=== PATIENT | female | born 1995 | race American Indian/Alaskan Native ===

== ENCOUNTER 2017-11-19 07:34 | Emergency (ER) | payer MEDICAID ==
[2017-11-19 08:02] VITALS: RESP 18; O2SAT 98
[2017-11-19] MEDS ORDERED: Morphine 4 mg/ml ISec IVP STA (08:11)
[2017-11-19] MEDS ORDERED: Sodium Chloride 0.9% 1,000 ML IV STA (08:11)
--- NOTE | 2017-11-19 08:16 | ED PDOC ---
Arrival/HPI - General Chief Complaint: Anxiety Time Seen by Provider: 11/19/17 07:44 Historian: Patient - History of Present Illness Narrative History of Present Illness (Text): 11/19/17 08:11 22 year old female, visiting from [place], [place], with past medical history of anxiety, presents to the Emergency department accompanied by boyfriend complaining of nausea and vomiting secondary to worsening anxiety since 3 days. 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 Patient informs similar symptoms in the past for which she was hospitalized and "nothing was wrong" As per patient, she had a recent endoscopy performed last month with no acute findings. Patient denies any fever, chills, diarrhea, hematemesis, hematuria, dysuria, urinary output changes, chest pain, shortness of breath or any other complaints. Patient presents to the Emergency department for medical evaluation. 11/19/17 17:57 Time/Duration: < week (3 days) Symptom Onset: Gradual Symptom Course: Unchanged Activities at Onset: Light Past Medical History - Provider Review Nursing Documentation Reviewed: Yes - Infectious Disease Hx of Infectious Diseases: None - Pulmonary Hx Asthma: Yes - Psychiatric Hx Anxiety: Yes Hx Substance Use: No Family/Social History - Physician Review Nursing Documentation Reviewed: Yes Family/Social History: No Known Family HX Smoking Status: Never Smoked Hx Alcohol Use: No Hx Substance Use: No Allergies/Home Meds Allergies/Adverse Reactions: Allergies No Known Allergies Allergy (Verified 11/19/17 08:32) Review of Systems - Physician Review All systems were reviewed & negative as marked: Yes - Review of Systems Constitutional: absent: Fevers Respiratory: absent: SOB, Cough Cardiovascular: absent: Chest Pain Gastrointestinal: Abdominal Pain, Nausea, Vomiting. absent: Diarrhea, Hematemesis Genitourinary Female: absent: Dysuria, Hematuria, Urine Output Changes Physical Exam Vital Signs Reviewed: Yes Vital Signs Temp Pulse Resp BP Pulse Ox 11/19/17 11:27 98.5 F 72 18 125/79 98 11/19/17 11:00 98.5 F 72 18 125/79 98 11/19/17 09:35 99.5 F 89 18 132/89 98 11/19/17 07:54 97.9 F 98 H 18 118/90 98 Temperature: Afebrile Blood Pressure: Normal Pulse: Tachycardic Respiratory Rate: Normal Appearance: Positive for: Other (Anxious) Pain Distress: None Mental Status: Positive for: Alert and Oriented X 3 - Systems Exam Head: Present: Atraumatic, Normocephalic Pupils: Present: PERRL Extroacular Muscles: Present: EOMI Conjunctiva: Present: Normal Mouth: Present: Moist Mucous Membranes Neck: Present: Normal Range of Motion Respiratory/Chest: Present: Clear to Auscultation, Good Air Exchange. No: Respiratory Distress, Accessory Muscle Use Cardiovascular: Present: Regular Rate and Rhythm, Normal S1, S2. No: Murmurs Abdomen: Present: Tenderness (epigastric tenderness ). No: Distention, Peritoneal Signs Back: Present: Normal Inspection Upper Extremity: Present: Normal Inspection. No: Cyanosis, Edema Lower Extremity: Present: Normal Inspection. No: Edema Neurological: Present: GCS=15, CN II-XII Intact, Speech Normal Skin: Present: Warm, Dry, Normal Color. No: Rashes Psychiatric: Present: Alert, Oriented x 3, Anxious Medical Decision Making ED Course and Treatment: 11/19/17 08:11 Impression: 22 year old female presents to the Emergency department complaining of anxiety and abdominal pain associated with nausea and vomiting. Differential Diagnosis included but are not limited to: anxiety vs gastritis/ pancreatitis pud Plan: -- EKG -- CT of Abdomen/Pelvis -- CXR -- Labs -- Ativan -- IV Fluids -- Urinalysis -- Reassess and disposition Progress Notes: 11/19/17 09:00 EKG: Ordered, reviewed, and independently interpreted the EKG. Rate : 90 BPM Rhythm : NSR Interpretation : Patient shaking during exam secondary to emotion. 11/19/17 11:05 CT of Abdomen/Pelvis reviewed by radiologist, shows: Mild hepatomegaly with mild fatty infiltration. Urinary bladder exhibits thick-walled appearance in part due to incomplete distention however a cystitis should be excluded with followup urinalysis. 11/19/17 17:58 labs imagign neg. pt observed sleeping inad. abd soft. h/h stable. pt observed drinkning water in nad. advise outpt fu and return precautions - Lab Interpretations Lab Results: 11/19/17 08:10 11/19/17 08:10 Lab Results 11/19/17 08:20: Urine Opiates Screen Negative, Urine Methadone Screen Negative, Ur Barbiturates Screen Negative, Ur Phencyclidine Scrn Negative, Ur Amphetamines Screen Negative, U Benzodiazepines Scrn Negative, U Oth Cocaine Metabols Negative, U Cannabinoids Screen Positive H 11/19/17 08:20: Urine Color Yellow, Urine Appearance Cloudy, Urine pH 8.0, Ur Specific [place] 1.020, Urine Protein 100 H, Urine Glucose (UA) Negative, Urine Ketones >=80, Urine Blood Trace-intact H, Urine Nitrate Negative, Urine Bilirubin Negative, Urine Urobilinogen 0.2, Ur Leukocyte Esterase Trace H, Urine RBC 1 - 3, Urine WBC 2 - 5, Ur Epithelial Cells Tntc, Amorphous Sediment Moderate, Urine Bacteria Trace, Urine HCG, Qual Negative 11/19/17 08:10: Alcohol, Quantitative < 10 11/19/17 08:10: Salicylates < 1 L, Acetaminophen < 10.0 L 11/19/17 08:10: Sodium 139, Potassium 3.6, Chloride 105, Carbon Dioxide 17 L, Anion Gap 21 H, BUN 11, Creatinine 0.6 L, Est GFR ( Amer) > 60, Est GFR ( Non-Af Amer) > 60, Random Glucose 125 H, Calcium 10.2, Magnesium 1.7, Total Bilirubin 0.8, AST 24, ALT 16, Alkaline Phosphatase 59, Total Protein 8.9 H, Albumin 5.0 H, Globulin 3.9, Albumin/Globulin Ratio 1.3, Lipase 30 11/19/17 08:10: PT 12.2, INR 1.06, APTT 22.0 L 11/19/17 08:10: WBC 7.2, RBC 5.20, Hgb 14.1, Hct 39.5, MCV 76.0 L, MCH 27.1, MCHC 35.7, RDW 13.2, Plt Count 318, MPV 10.4, Gran % 62.8, Lymph % (Auto) 24.3, [place] % (Auto) 12.7 H, Eos % (Auto) 0.1 L, Baso % (Auto) 0.1, Gran # 4.53, Lymph # (Auto) 1.8, [place] # (Auto) 0.9 H, Eos # (Auto) 0.0, Baso # (Auto) 0.01 - RAD Interpretation Radiology Orders: 11/19/17 09:05 ABD & PELVIS IV CONTRAST ONLY [CT] Stat CHEST TWO VIEWS (PA/LAT) [RAD] Stat - EKG Interpretation Interpreted by ED Physician: Yes Type: 12 lead EKG - Medication Orders Current Medication Orders: Discontinued Medications Al Hydrox/Mg Hydrox/Simethicone (Maalox Plus 30 Ml) 30 ml PO STAT STA Stop: 11/19/17 10:25 Last Admin: 11/19/17 10:32 Dose: 30 ml Belladonna/Phenobarbital ( Elixir) 10 ml PO STAT STA Stop: 11/19/17 10:25 Last Admin: 11/19/17 10:31 Dose: 10 ml Sodium Chloride (Sodium Chloride 0.9%) 1,000 mls @ 1,000 mls/hr IV .Q1H STA Stop: 11/19/17 09:10 Last Admin: 11/19/17 08:38 Dose: 1,000 mls/hr eMAR Start Stop Document 11/19/17 08:38 LM (Rec: 11/19/17 08:38 [id number] Intravenous Solution Start Date 11/19/17 Start Time 08:38 End Date 11/19/17 End time 09:39 Total Infusion Time 61 Lidocaine HCl (Lidocaine 2% Viscous) 10 ml MM STAT STA Stop: 11/19/17 10:25 Last Admin: 11/19/17 10:32 Dose: 10 ml Lorazepam (Ativan) 0.5 mg IVP ONCE ONE PRN Reason: Protocol Stop: 11/19/17 08:12 Last Admin: 11/19/17 08:37 Dose: 0.5 mg IVP Administration Document 11/19/17 08:37 [facility] [place] (Rec: 11/19/17 08:38 [id number] Charges for Administration # of IVP Administrations 1 Ondansetron HCl (Zofran Inj) 4 mg IVP STAT STA Stop: 11/19/17 08:41 Last Admin: 11/19/17 09:21 Dose: 4 mg IVP Administration Document 11/19/17 09:21 EW (Rec: 11/19/17 09:21 EWO [id number]) Charges for Administration # of IVP Administrations 1 Ondansetron HCl (Zofran Inj) 4 mg IVP STAT STA Stop: 11/19/17 10:32 Last Admin: 11/19/17 10:38 Dose: 4 mg IVP Administration Document 11/19/17 10:38 EWO (Rec: 11/19/17 10:38 EWO [id number]) Charges for Administration # of IVP Administrations 2 Pantoprazole Sodium (Protonix Inj) 40 mg IVP STAT STA Stop: 11/19/17 08:12 Last Admin: 11/19/17 08:37 Dose: 40 mg IVP Administration Document 11/19/17 08:37 [facility] [place] (Rec: 11/19/17 08:37 [id number] Charges for Administration # of IVP Administrations 1 - Scribe Statement The provider has reviewed the documentation as recorded by the Scribe Carline Natarajan. All medical record entries made by the Scribe were at my direction and personally dictated by me. I have reviewed the chart and agree that the record accurately reflects my personal performance of the history, physical exam, medical decision making, and the department course for this patient. I have also personally directed, reviewed, and agree with the discharge instructions and disposition. Disposition/Present on Arrival - Present on Arrival Any Indicators Present on Arrival: No History of DVT/PE: No History of Uncontrolled Diabetes: No Urinary Catheter: No History of Decub. Ulcer: No History Surgical Site Infection Following: None - Disposition Have Diagnosis and Disposition been Completed?: Yes Diagnosis: Vomiting Disposition: HOME/ ROUTINE Disposition Time: 05:00 Condition: STABLE Discharge Instructions (ExitCare): Anxiety, Adult (DC), Nausea and Vomiting, Adult (DC) Additional Instructions: please follow up with your doctor. return to er with worsening symptoms or concerns. Prescriptions: Ondansetron ODT [Zofran ODT] 4 mg PO Q8 PRN #20 odt PRN Reason: Nausea/Vomiting Referrals: [facility] [Outside] - Follow up with primary [facility] [Outside] - Follow up with primary Forms: [employer] (French)
[2017-11-19 08:36] LABS: ALB/GLOB RATIO 1.3 (1.1-1.8); ALT/SGPT 16 U/L (7-56); AST/SGOT 24 U/L (14-36); BLOOD UREA NITROGEN 11 mg/dL (7-21); CALCIUM 10.2 mg/dL (8.4-10.5); GFR AFRICAN-AMERICAN > 60; GFR NON-AFRICAN AMERICAN > 60; LIPASE 30 U/L (23-300)
[2017-11-19 08:37] LABS: ACETAMINOPHEN < 10.0 ug/ml (10.0-20.0); SALICYLATE < 1 mg/dL (2.0-20.0)
[2017-11-19 08:47] LABS: BASO # 0.01 K/mm3 (0.0-2.0); BASO % 0.1 % (0.0-3.0); EOS % 0.1 % (1.5-5.0); GRAN # 4.53 (1.4-6.5); GRAN % 62.8 % (50.0-68.0); HEMOGLOBIN 14.1 g/dL (12.0-16.0); LYMPH # 1.8 (1.2-3.4); LYMPH % 24.3 % (22.0-35.0); MEAN CORPUSCULAR HEMOGLOBIN 27.1 pg (25.0-35.0); MEAN CORPUSCULAR HGB CONC 35.7 g/dl (31.0-37.0); MEAN PLATELET VOLUME 10.4 fl (7.0-11.0); MONO # 0.9 (0.1-0.6); MONO % 12.7 % (1.0-6.0); RBC 5.2 10^6/uL (3.5-6.1); RED CELL DISTRIBUTION WIDTH 13.2 % (11.5-14.5); WHITE BLOOD COUNT 7.2 10^3/ul (4.5-11.0)
[2017-11-19 08:51] LABS: INR 1.06; PROTHROMBIN TIME 12.2 SECONDS (9.4-12.5)
[2017-11-19 08:52] LABS: URINE BILIRUBIN NEGATIVE (NEGATIVE); URINE BLOOD TRACE-INTACT (NEGATIVE); URINE GLUCOSE (UA) NEGATIVE (NEGATIVE); URINE LEUKOCYTE ESTERASE TRACE Leu/uL (NEGATIVE); URINE PROTEIN 100 mg/dL (<30 mg/dL); URINE UROBILINOGEN 0.2 E.U./dL (<1 E.U./dL)
[2017-11-19 08:53] LABS: URINE APPEARANCE CLOUDY (CLEAR); URINE COLOR YELLOW (YELLOW)
[2017-11-19 09:06] LABS: BARBITURATES, UR NEGATIVE (NEGATIVE); BENZODIAZEPINES, UR NEGATIVE (NEGATIVE); OPIATES, UR NEGATIVE (NEGATIVE); PHENCYCLIDINE, UR NEGATIVE (NEGATIVE)
[2017-11-19 09:09] LABS: HCG,QUALITATIVE URINE NEGATIVE (NEGATIVE)
[2017-11-19 09:13] LABS: URINE AMORPHOUS SEDIMENT MODERATE; URINE BACTERIA TRACE (NEG); URINE EPITHELIAL CELLS TNTC /hpf (0-5)
[2017-11-19] MEDS ORDERED: Iohexol 350 MG/100 ML VIAL ONE (09:32)
[2017-11-19] MEDS ORDERED: Alum-Mag Hydrox-Simethicone Susp (30 mL) PO STA (10:24)
[2017-11-19] MEDS ORDERED: Atrop/Hyosc/Scopal/PB Elixir (120 ml) PO STA (10:24)
--- NOTE | 2017-11-19 10:56 | CT ---
Date of service: 11/19/2017 PROCEDURE: CT Abdomen and Pelvis with contrast HISTORY: Upper abdominal pain COMPARISON: None. TECHNIQUE: Contiguous helical/ transaxial sections of the abdomen pelvis performed following intravenous injection of approximately 96cc Omnipaque 350 contrast material T8 in. Additional 2D sagittal and coronal reformats generated Radiation dose: Total exam DLP = 299.4 mGy-cm. This CT exam was performed using one or more of the following dose reduction techniques: Automated exposure control, adjustment of the mA and/or kV according to patient size, and/or use of iterative reconstruction technique. FINDINGS: LOWER THORAX: Lung bases clear. No focal consolidation effusion or basilar pneumothorax. Heart size is within range of normal. No significant pericardial effusion. Tiny hiatal hernia. LIVER: Liver is mildly enlarged measuring nearly 20 cm in CC dimension. Minor CF ptosis. No obvious hepatic mass or collection. Portal and splenic veins are opacified. GALLBLADDER AND BILE DUCTS: Gallbladder is physiologically distended. No evidence of intraluminal gallbladder calculi. . PANCREAS: Unremarkable. No gross lesion or ductal dilatation. SPLEEN: Unremarkable. ADRENALS: There are no adrenal lesions. KIDNEYS AND URETERS: Kidneys demonstrate relatively symmetric nephrograms. No evidence of nephrolithiasis or hydronephrosis. VASCULATURE: Unremarkable. No aortic aneurysm. BOWEL: Evaluation of the bowel is limited due to the lack of oral contrast material. Stomach is incompletely distended which in part accounts for thick-walled appearance. Visualized loops of small bowel exhibit normal contour and caliber. No evidence acute mechanical small bowel obstruction. Large bowel predominately collapsed with the exception stool seen in the cecum - proximal ascending colon and rectum. . APPENDIX: The appendix is not seen with complete certainty however what probably represents a partially visualized normal appendix of best seen on axial 125- 130. No obvious inflammatory changes seen in the right lower quadrant of the abdomen. PERITONEUM: Unremarkable. No free fluid. No free air. LYMPH NODES: Unremarkable. No enlarged lymph nodes. BLADDER: Urinary bladder is incompletely distended which presumably in part accounts for thick-walled appearance. Cystitis not excluded. Correlation with urinalysis. REPRODUCTIVE: Uterus and adnexal structures appear grossly unremarkable. BONES: No acute fracture. No evidence of significant degenerative spondylosis. OTHER FINDINGS: None. IMPRESSION: Mild hepatomegaly with mild fatty infiltration. Urinary bladder exhibits thick-walled appearance in part due to incomplete distention however a cystitis should be excluded with followup urinalysis.
[2017-11-19 11:26] VITALS: BP 125/79; PULSE 72; TEMP 98.5
--- NOTE | 2017-11-19 12:31 | RAD ---
Date of service: 11/19/2017 HISTORY: abd pain COMPARISON: No prior. TECHNIQUE: Chest PA and lateral FINDINGS: LUNGS: No active pulmonary disease. PLEURA: No significant pleural effusion identified. No pneumothorax apparent. CARDIOVASCULAR: Normal. OSSEOUS STRUCTURES: No significant abnormalities. VISUALIZED UPPER ABDOMEN: Normal. OTHER FINDINGS: None. IMPRESSION: No active disease.
--- NOTE | 2017-11-19 15:27 | CARD ---
APPROVED REPORT Date of service: 11/19/2017 EKG Measurement Heart [id number] CT [id number] <Conclusion> Normal sinus rhythm Abnormal QRS-T angle, consider primary T wave abnormality Abnormal ECG
== END 2017-11-19 11:26 | disposition home or self-care (01) ==
LOC: ED 07:34
DX: R11.10 Vomiting, unspecified (principal); F41.9 Anxiety disorder, unspecified
CPT/HCPCS: 71046; 74177; 80053; 80320; 80324; 80329; 80345; 80346; 80349; 80353; 80358; 80361; 81001; 83690; 83735; 83992; 84703; 85025; 85610; 85730; 87086; 93005; 96361; 96374; 96375; 96376; 99284; C9113; J2060; J2405; J7030; Q9967